=== PATIENT | female | born 1985 | race Caucasian/White ===

== ENCOUNTER 2021-02-04 12:18 | Emergency (ER) | payer SELFPAY ==
[~2021-02-04 12:18] MED LIST: Sodium Chloride 0.9% 1,000 ML BAG ONE
[2021-02-04] MEDS ORDERED: diphenhydrAMINE 50 MG/ML VIAL ONE (13:46)
[2021-02-04] MEDS ORDERED: Sodium Chloride 0.9% 1,000 ML ONE (13:46)
[2021-02-04] MEDS ORDERED: Prochlorperazine 10 MG/2 ML VIAL ONE (13:46)
[2021-02-04] MEDS ORDERED: Ketorolac Tromethamine 30 MG/ML VIAL ONE (13:46)
[2021-02-04] MEDS ORDERED: Acetaminophen 500 MG TAB ONE (15:31)
[2021-02-04] MEDS ORDERED: methylPREDNISolone Sod Succ/PF 125 MG/2 ML VIAL ONE (15:31)
== END 2021-02-04 16:15 | disposition home or self-care (01) ==
LOC: MADERS 12:18
DX: R51.9 Headache, unspecified (principal); R11.2 Nausea with vomiting, unspecified; F17.210 Nicotine dependence, cigarettes, uncomplicated; Z79.899 Other long term (current) drug therapy
CPT/HCPCS: 96374; 96375; J0780; J1200; J1885; J2930; J7050

== ENCOUNTER 2021-04-02 02:45 | Emergency (ER) | payer SELFPAY ==
[2021-04-02] MEDS ORDERED: Ondansetron PF 4 MG/2 ML Vial ONE (03:08)
[2021-04-02] MEDS ORDERED: diphenhydrAMINE 50 MG/ML VIAL ONE (05:16)
[2021-04-02] MEDS ORDERED: Ketorolac Tromethamine 30 MG/ML VIAL ONE (05:16)
[2021-04-02] MEDS ORDERED: Prochlorperazine 10 MG/2 ML VIAL ONE (05:16)
[2021-04-02 08:06] LABS: #Basophils 0.1 thou/uL (0.0-0.2); #Eosinphils 0.1 thou/uL (0.0-0.7); #Lymphocytes 2.3 thou/uL (1.20-3.40); #Monocytes 0.3 thou/uL (0.11-0.59); #Neutrophils 4.9 thou/uL (1.40-6.50); %Basophils 1.1 % (0.0-1.0); %Eosinophils 0.9 % (0.0-10.0); %Lymphocytes 29.7 % (21.0-51.0); %Monocytes 4.2 % (0.0-10.0); %Neutrophils 64.2 % (42.0-75.0); Hemoglobin 16.1 g/dL (12.0-16.0); Mean Corpuscular HGB CONC 32.2 g/dL (32.0-36.0); Mean Corpuscular Hemoglobin 31.6 pg (27.0-31.0); Mean Corpuscular Volume 98.2 fL (78.0-98.0); Mean Platelet Volume 6.5 fL (7.4-10.4); Platelet Count 323 thou/uL (130-400); RBC Distribution Width 11.6 % (11.5-14.5); Red Blood Cell (RBC) Count 5.08 mill/uL (4.20-5.40); White Blood Cell (WBC) Count 7.6 thou/uL (4.8-10.8)
[2021-04-02 08:08] LABS: ALT (SGPT) 18 U/L (8-55); AST (SGOT) 11 U/L (5-34); Acetaminophen Less than 6.0 mcg/mL (10.0-30.0); Albumin 4.2 g/dL (3.5-5.0); Alcohol Less than 10 mg/dL (Less than 10); Alkaline Phosphatase 101 U/L (40-110); Anion Gap 19 mmol/L (10-20); BUN (Urea Nitrogen) 9 mg/dL (7.0-18.7); Bilirubin, Total 0.4 mg/dL (0.2-1.2); Calc. Creatinine Clearance 0 mL/min (70-130); Calcium 9.7 mg/dL (7.8-10.44); Carbon Dioxide 15 mmol/L (22-29); Chloride 108 mmol/L (98-107); Globulin 2.8 g/dL (2.4-3.5); Glucose 140 mg/dL (70-105); Potassium 3.4 mmol/L (3.5-5.1); Salicylate Less than 8.0 mg/dL (15.0-30.0); Sodium 139 mmol/L (136-145)
[2021-04-02 08:09] LABS: Bilirubin Negative (Negative); Blood, Urine Negative (Negative); Clarity Cloudy (Clear); Glucose, Urine (Dipstick) Negative (Negative); Ketone, Urine Negative (Negative); Leukocyte Negative (Negative); Nitrite Negative (Negative); Protein, Urine (Dipstick) 30 mg/dL (Neg-Trace); Specific Gravity, Urine 1.024 (1.002-1.036); Urobilinogen 0.2 mg/dL (Less than 2); pH, Urine 5.5 (5.0-9.0)
[2021-04-02 08:10] LABS: Squamous Epithelial Greater than 50 HPF (0-3)
[2021-04-02 08:11] LABS: Amphetamine Not Detected (NotDetected); Bacteria/HPF 2+ HPF (None Seen); Barbiturates Screen Not Detected (NotDetected); Benzodiazepine Screen Detected (NotDetected); Cocaine Metabolite Screen Not Detected (NotDetected); Medtox Control Line Valid? VALID (VALID); Methadone Not Detected (NotDetected); Methamphetamine Not Detected (NotDetected); Mucous/LPF 4+ LPF (<2+); Opiate Screen Not Detected (NotDetected); Oxycodone Screen Not Detected (NotDetected); Phencyclidine (PCP) Not Detected (NotDetected); THC/Cannabinoid Screen Detected (NotDetected); Tricyclic Screen Not Detected (NotDetected)
[2021-04-02 08:12] LABS: BHCG - Serum Negative (NEGATIVE); Pregs Control Background? CLEAR/WHITE (CLR/WHITE); Pregs Control Bar Appear? YES (CONTROL BAR)
== END 2021-04-02 06:01 | disposition home or self-care (01) ==
LOC: MADERS 02:45
DX: R56.9 Unspecified convulsions (principal); G43.909 Migraine, unspecified, not intractable, without status migrainosus; F17.210 Nicotine dependence, cigarettes, uncomplicated; Z79.899 Other long term (current) drug therapy
CPT/HCPCS: 70450; 80053; 80306; 80307; 81003; 81015; 84703; 85025; 96374; 96375; J0780; J1200; J1885; J2405

== ENCOUNTER 2021-12-21 07:33 | Emergency (ER) | payer SELFPAY ==
[2021-12-21 08:10] LABS: #Basophils 0.1 thou/uL (0.0-0.2); #Eosinphils 0.3 thou/uL (0.0-0.7); #Lymphocytes 2.5 thou/uL (1.20-3.40); #Monocytes 0.3 thou/uL (0.11-0.59); #Neutrophils 2.8 thou/uL (1.40-6.50); %Basophils 1.4 % (0.0-1.0); %Eosinophils 4.5 % (0.0-10.0); %Monocytes 4.8 % (0.0-10.0); %Neutrophils 47.3 % (42.0-75.0); Hemoglobin 14.7 g/dL (12.0-16.0); Mean Corpuscular Hemoglobin 31.5 pg (27.0-31.0); Mean Corpuscular Volume 95.6 fL (78.0-98.0); Mean Platelet Volume 7.8 fL (7.4-10.4); Platelet Count 314 thou/uL (130-400); Red Blood Cell (RBC) Count 4.67 mill/uL (4.20-5.40)
[2021-12-21 08:21] LABS: ALT (SGPT) 14 U/L (8-55); AST (SGOT) 12 U/L (5-34); Albumin 4.2 g/dL (3.5-5.0); Alkaline Phosphatase 115 U/L (40-110); Anion Gap 14 mmol/L (10-20); BUN (Urea Nitrogen) 9 mg/dL (7.0-18.7); Bilirubin, Total 0.2 mg/dL (0.2-1.2); Calc. Creatinine Clearance 0 mL/min (70-130); Calcium 8.7 mg/dL (7.8-10.44); Carbon Dioxide 23 mmol/L (22-29); Chloride 106 mmol/L (98-107); Globulin 2.5 g/dL (2.4-3.5); Glucose 89 mg/dL (70-105); Potassium 4.3 mmol/L (3.5-5.1); Protein, Total 6.7 g/dL (6.0-8.3); Sodium 139 mmol/L (136-145)
[2021-12-21 08:24] LABS: BHCG - Serum Negative (NEGATIVE); Pregs Control Background? CLEAR/WHITE (CLR/WHITE); Pregs Control Bar Appear? YES (CONTROL BAR)
[2021-12-21] MEDS ORDERED: Iopamidol 370 76% 100 ML VIAL ONE (09:08)
[2021-12-21] MEDS ORDERED: Bupivacaine HCl 0.5%/Epinephrine 1:200,000/PF 30 ml Vial ONE (10:09)
[2021-12-21] MEDS ORDERED: Penicillin V Potassium 250 MG TAB ONE ×2 (10:13)
== END 2021-12-21 10:31 | disposition home or self-care (01) ==
LOC: MADERS 07:33
DX: K04.7 Periapical abscess without sinus (principal); F17.210 Nicotine dependence, cigarettes, uncomplicated
CPT/HCPCS: 64400; 70491; 80053; 84703; 85025; Q9967

== ENCOUNTER 2022-06-18 09:10 | Emergency (ER) | payer SELFPAY ==
[2022-06-18] MEDS ORDERED: Morphine 4 MG/ML VIAL ONE (10:20)
[2022-06-18] MEDS ORDERED: Lidocaine 1% (PF) 30 ML VIAL ONE (10:21)
== END 2022-06-18 10:55 | disposition home or self-care (01) ==
LOC: MADERS 09:10
DX: M79.651 Pain in right thigh (principal); L02.415 Cutaneous abscess of right lower limb; F17.210 Nicotine dependence, cigarettes, uncomplicated
CPT/HCPCS: 10060; 87070; 87205; 96372; J2001; J2270

== ENCOUNTER 2022-09-18 14:14 | Emergency (ER) | payer SELFPAY ==
[2022-09-18] MEDS ORDERED: traMADol HCl 50 MG TAB ONE (14:58)
[2022-09-18] MEDS ORDERED: Ibuprofen 800 MG TAB ONE (14:59)
== END 2022-09-18 15:51 | disposition home or self-care (01) ==
LOC: MADERS 14:14
DX: S67.21XA Crushing injury of right hand, initial encounter (principal); S67.22XA Crushing injury of left hand, initial encounter; S63.611A Unspecified sprain of left index finger, initial encounter; S63.613A Unspecified sprain of left middle finger, initial encounter; S63.614A Unspecified sprain of right ring finger, initial encounter; S63.616A Unspecified sprain of right little finger, initial encounter; S63.610A Unspecified sprain of right index finger, initial encounter; S63.612A Unspecified sprain of right middle finger, initial encounter; F17.210 Nicotine dependence, cigarettes, uncomplicated; W23.0XXA Caught, crushed, jammed, or pinched between moving objects, initial encounter